=== PATIENT | male | born 1975 | race Caucasian/White ===

== ENCOUNTER → 2017-08-09 | Day surgery (SDC) | payer OTHER ==
[~2017-08-09] VITALS: Ht 160 cm; Wt 67.8 kg
[~2017-08-09] MED LIST: *ONDANSETRON 4 MG VIAL PERIprocedural Use ONLY ONE; *PROMETHAZINE 25 MG/ML VIAL PERIprocedural use ONLY ONE; ACETAMINOPHEN 500 MG CPLT PO PRN; ATOR40TA16 PO; ATROPINE SULFATE 1% OPHT SOLN 2 ML BTL ONE; BALANCED SALT SOLN OPHT IRRIG 15 ML BTL ONE; CHLORHEXIDINE GLUCONATE 2 % 1 PACK (2 CLOTHS) TOPICAL PRN; DEXAMETHASONE SOD PHOS 4 MG/ML VIAL ONE; DEXTROSE 50% IN WATER 50 ML SYRINGE ONE; DO NOT ADM ANY ANTICOAGULANT DRUGS PRN; EPINEPHrine HCL (1:1000) 1 MG/ML VIAL ONE; LABETALOL HCL 100 MG/20 ML VIAL ONE; LACTATED RINGER'S 1000 ML INJ 1,000 ML IV ONE; LACTATED RINGER'S 1000 ML IV PRN; LIDOCAINE HCL 1% PF 5 ML SYRINGE OTHER ONE; LISI-519 PO; METF500T PO; METOPROLOL TARTRATE 25 MG TAB PO PRN; ONDANSETRON HCL 4 MG/2 ML VIAL IM PRN; ONDANSETRON HCL 4 MG/2 ML VIAL IV PUSH ONE; ONDANSETRON HCL 4 MG/2 ML VIAL IV PUSH PRN; PHENYLEPH/NS 1000 MCG/10 ML SYR IV ONE; POVIDONE IODINE 5% (ANTISEPSIS KIT) 4 APPLICATIONS EACH NARE PRN; PROPOFOL 200 MG/20 ML AMP IV ONE; SODIUM CHLORID 0.9% 500 ML IV PRN; STERILE WATER FOR INJECTION 20 ML VIAL ONE; TOBRAMYCIN/DEXAMETHASONE OPTH OINT 3.5 GM TUBE ONE; TRIAMCINOLONE ACETONIDE/PF 40 MG/ML OPTH VIAL ONE; VITA1000 PO; ceFAZolin INJ 1,000 MG VIAL ONE; ePHEDrine/NS 25 MG/5 ML SYR IV ONE; oxyCODONE/ACETAMINOPHEN 5 MG/325 MG TAB PO PRN
[2017-08-09 07:11] LABS: AUTOMATED NEUTROPHIL # 6.2 TH/MM3 (1.8-7.7); BASOPHIL % 0.4 % (0.0-2.0); EOSINOPHIL # 0.2 TH/MM3 (0-0.4); EOSINOPHIL % 2.1 % (0.0-4.0); HEMATOCRIT 35.5 % (39.0-51.0); HEMO FLAGS DIFF FINAL; LYMPH % 21.3 % (9.0-44.0); LYMPHOCYTE # 1.9 TH/MM3 (1.0-4.8); MEAN CORPUSCULAR HEMOGLOBIN 29.5 PG (27.0-34.0); MEAN CORPUSCULAR HGB CONC 34.3 % (32.0-36.0); MONO % 5.9 % (0.0-8.0); NEUT % 70.3 % (16.0-70.0); PLATELET COUNT 198 TH/MM3 (150-450); RED BLOOD COUNT 4.12 MIL/MM3 (4.50-5.90); RED CELL DISTRIBUTION WIDTH 13.6 % (11.6-17.2); WHITE BLOOD COUNT 8.8 TH/MM3 (4.0-11.0)
[2017-08-09] MEDS: PHENYLEPHRINE HCL 2.5% OPTH SOLN 2 ML BTL EACH EYE SCH ×4 (07:30→08:15)
[2017-08-09] MEDS: CYCLOPENTOLATE HCL 1% OPHT SOLN 2 ML BTL EACH EYE SCH ×4 (07:30→08:15)
[2017-08-09] MEDS: TROPICAMIDE 1% OPHT SOLN 15 ML BTL EACH EYE SCH ×4 (07:30→08:15)
[2017-08-09] MEDS: ATROPINE SULFATE 1% OPHT SOLN 5 ML BTL EACH EYE SCH ×4 (07:30→08:15)
[2017-08-09 11:24] VITALS: BP 163/85; PULSE 81; RESP 18; O2SAT 99
--- NOTE | 2017-08-09 11:30 | MP ---
cc: SABRINA BEDOLLA M.D. DATE OF SURGERY: 08/09/2017 PREOPERATIVE DIAGNOSIS Severe proliferative diabetic retinopathy OU, non-clearing vitreous hemorrhage OS. POSTOPERATIVE DIAGNOSIS Severe proliferative diabetic retinopathy OU, non-clearing vitreous hemorrhage OS. PROCEDURE Trans pars plana vitrectomy with membranectomy, endolaser photocoagulation PRP and air-fluid exchange OS, laser indirect panretinal photocoagulation OD. SURGEON Dr. Sabrina Bedolla. ANESTHESIA General laryngeal mask anesthesia. INDICATION Mr. Nelson is a 42-year-old type-I diabetic who has severe proliferative diabetic retinopathy. He has had a nonclearing vitreous hemorrhage in his left eye for months and now wishes to proceed electively with vitrectomy and any other necessary procedures. He has had prior panretinal photocoagulation, however, continued to bleed OS and also has active neovascularization on Fluorescein angiography OD. The risks and benefits of surgery and laser were discussed with the patient and he wished to proceed. Informed consent was obtained. No guarantee was made as to visual outcome. PROCEDURE He was brought to [facility] operating room one and placed on the operating table. Appropriate anesthesia monitoring devices were applied and he was placed under general anesthesia using laryngeal mask. The left eye was identified as the surgical operative site and then prepped and draped in the usual sterile fashion. A lid speculum was placed. The microscope was brought around and adjusted. At this time an appropriate time-out was called with the surgical team agreeing to the procedure and surgical sites. Using the John 23-gauge vitrectomy system the trocar cannulas were placed 4 mm posterior to the limbus after first displacing the conjunctiva and with a beveled entrance. The first one was placed at approximately 3:15 o'clock and verified to be in the posterior chamber. An infusion cannula was affixed to it and turned on. Two additional trocar cannulas were placed in similar fashion at approximately 10 and 2 o'clock. Using the flat contact lens the eye was entered with the Endo-eliminator light pipe and vitrectomy cutter. A core vitrectomy was carried out to the posterior pole. Copious amounts of preretinal hemorrhage was vacuumed off the posterior pole. The BIOM wide angle viewing system was used to further the vitrectomy out into the periphery. There was a large broad based neovascular complex in the nasal mid periphery, this was not disturbed. Endolaser photocoagulation was then placed using a power of 300 milliwatts and 0.15-second exposure to complete and fill in the PRP. The fundus was inspected. The retina was attached except for the tractional area which was undisturbed in the nasal mid periphery. The cannulas were then removed one by one after partial air-fluid exchange and sites were tamponaded with a cotton swab, diathermy to the overlying conjunctival was performed. The infusion cannula was removed lastly and that site also tamponaded with a cotton swab and diathermy to the overlying conjunctival wound. This left the eye soft but with good pressure and no visible air leaks. Atropine drops were placed on the cornea followed by subconjunctival injections of Ancef 125 mg in half cc and Decadron 2 mg in half cc. The lid speculum was removed and the patient was undraped. TobraDex ointment was placed on the cornea and then the left eye was patched and shielded. Attention was then drawn to the right eye which was also dilated and using the indirect laser delivery system additional laser was placed around the periphery outside of the arcades. A total of 329 laser spots were placed with endolaser PRP in the left eye and a total of 630 spots were placed around the periphery outside the arcades in the right eye using a power of 350 milliwatts, 0.15-second exposure. At this point the procedure was terminated at approximately 09:45 and the patient had the laryngeal mask removed in the room and was returned to recovery in good condition laying on his right side. MD SAHIL Diaz/HADLEY /10:02 AM /11:08 AM
--- NOTE | 2017-08-09 15:44 | EKG ---
Date Performed: 08/09/2017 Time Performed: 06:43:56 PTAGE: 42 years EKG: Sinus rhythm NORMAL ECG NO PREVIOUS TRACING DOCTOR: Douglas Roger Interpretating Date/Time 08/09/2017 15:43:50
== END | disposition home or self-care (01) ==
LOC: HSDC 06:20
PROVIDERS: ATTEND Ophthalmology
DX: E10.3593 Type 1 diabetes mellitus with proliferative diabetic retinopathy without macular edema, bilateral (principal); H35.051 Retinal neovascularization, unspecified, right eye; H43.12 Vitreous hemorrhage, left eye; Z79.84 Long term (current) use of oral hypoglycemic drugs
CPT/HCPCS: 00145; 67040; 67043; 85025; 93005; J0171; J0690; J1100; J2370; J2405; J3010; J7120; J2550; J3300